=== PATIENT | female | born 1985 | race Asian ===

== ENCOUNTER 2019-02-15 06:11 | Day surgery (SDC) | payer OTHER ==
[2019-02-15] MEDS ORDERED: FENTAnyl 50 MCG/ML VIAL (08:16)
[2019-02-15] MEDS ORDERED: MIDAZOLAM 1 MG/ML 2 ML INJ (08:16)
== END 2019-02-15 16:00 | disposition home or self-care (01) ==
LOC: GIL 06:11
DX: K21.0 Gastro-esophageal reflux disease with esophagitis (principal); E03.9 Hypothyroidism, unspecified; J45.909 Unspecified asthma, uncomplicated
CPT/HCPCS: 43239; 84703; 88305; 88312